=== PATIENT | male | born 1960 | race Native Hawaiian/Other Pacific Islander ===

== ENCOUNTER 2016-09-15 12:43 | Day surgery (SDC) | payer MEDICAID ==
[~2016-09-15 12:43] MED LIST: ACETAMINOPHEN 1000MG/100 ML PREMIX IV ONE
[2016-09-15] MEDS ORDERED: PROPOFOL 10 MG/ML VIAL IV ONE (14:00)
[2016-09-15] MEDS ORDERED: LIDOCAINE 2% MDV (20MG/ML) 20ML VIAL IV ONE (14:00)
[2016-09-15] MEDS ORDERED: KETOROLAC 30 MG/ML VIAL IVP ONE (14:00)
[2016-09-15] MEDS ORDERED: FENTANYL PF 100MCG/2ML VIAL IV ONE (14:00)
[2016-09-15] MEDS ORDERED: SEVOFLURANE 250 ML INH ONE (14:00)
[2016-09-15] MEDS ORDERED: ONDANSETRON HCL IV 4 MG/2 ML VIAL IVP ONE (14:00)
[2016-09-15] MEDS ORDERED: MIDAZOLAM HCL 2MG/2ML VIAL IV ONE (14:00)
--- NOTE | 2016-09-19 18:39 | Operative Note ---
DATE OF SURGERY: 09/15/2016 Surgeon: Jorge Marti DO Referring physician: Abril Kimball DO PREOPERATIVE DIAGNOSIS: Carpal tunnel syndrome of the left wrist. POSTOPERATIVE DIAGNOSIS: Carpal tunnel syndrome of the left wrist. OPERATION: Decompression of the left median nerve at the wrist using 3.5 loupe magnification. Anesthesia: General. PROCEDURE: This 56-year-old male was taken to the operating room and placed in the supine position on the operating room table where general anesthesia was induced. The left upper extremity was elevated, prepped with Hibiclens and draped in the usual sterile fashion, exsanguinated and the tourniquet inflated to 250 mmHg. A palmar incision was utilized following the hypothenar crease from the level of the base of the web space of the thumb to the flexor crease of the wrist. Dissection carried down through the skin and subcutaneous tissue. Hemostasis was obtained with the electrocautery. The palmar fascia was identified, split in line with the skin incision to expose the flexor retinaculum. This was punctured and then split to its proximal margin, and then with the contents of the carpal tunnel under direct vision the transverse carpal ligament was transected along its ulnar border, and the radial flap was raised to expose the entire median nerve under the transverse carpal ligament. The recurrent motor branch of the nerve was identified and found to be normal. Thickening of the tenosynovium overlying the nerve was split, but epineurotomy was not performed. The nerve demonstrated hyperemia. The tourniquet was subsequently released and hemostasis obtained with the electrocautery and the wound closed with interrupted 6-0 nylon suture. Sterile dressings were applied with a plaster splint immobilization with the wrist in slight dorsiflexion and the thumb in an adducted condition. The patient was taken to the recovery room in satisfactory condition. GROSS PATHOLOGY: This patient demonstrated some hyperemia of the median nerve under the transverse carpal ligament as well as thickening of the overlying tenosynovium. [facility], [place]
== END 2016-09-15 16:17 | disposition home or self-care (01) ==
LOC: SUR 12:43
PROVIDERS: ATTEND Orthopaedic Surgery
DX: G56.02 Carpal tunnel syndrome, left upper limb (principal)
CPT/HCPCS: 64721; 01810; J1885; J2405; J3010